=== PATIENT | male | born 1995 | race Asian ===

== ENCOUNTER 2019-06-20 00:16 | Emergency (ER) | payer SELFPAY ==
[~2019-06-20] VITALS: Ht 177.8 cm; Wt 80.9 kg
[2019-06-20] MEDS ORDERED: BACITRACIN 0.9 GM PACKET OINTMENT TP ONE (02:15)
[2019-06-20] MEDS ORDERED: BUPIVACAINE HCL/PF 0.25% 10 ML VIAL INJ ONE (02:15)
[2019-06-20 02:30] VITALS: BP 115/68
== END 2019-06-20 03:25 | disposition home or self-care (01) ==
LOC: EMS 00:21
DX: S61.211A Laceration without foreign body of left index finger without damage to nail, initial encounter (principal); S61.011A Laceration without foreign body of right thumb without damage to nail, initial encounter; W26.8XXA Contact with other sharp object(s), not elsewhere classified, initial encounter; Y93.89 Activity, other specified; Y92.89 Other specified places as the place of occurrence of the external cause; Y99.8 Other external cause status
CPT/HCPCS: 12002; 99284; J3490